=== PATIENT | male | born 1960 | race Caucasian/White ===

== ENCOUNTER → 2020-05-15 13:54 | Outpatient (CLI) | payer MEDICARE, SELFPAY ==
--- NOTE | ~2020-05-15 | CT_ITS ---
EXAMINATION:CT lung screening DATE: 05/15/2020 14:08 INDICATION: Personal history of tobacco dependence. Smoker who quit 3 years ago with 45 pack year his tory. TECHNIQUE: Computed tomography (CT) of the chest was performed without intravenous contrast. Automate d exposure control and iterative reconstruction technique were employed. The dose-length product (DLP ) was 98.26 mGy-cm. COMPARISON: None. FINDINGS: There is mild emphysema. There is mild atelectasis bilaterally. There is mild scarring at t he lung apices. No pleural effusion. The heart size is normal. No pericardial effusion. There are no pathologically enlarged lymph nodes. There is mild thoracic spondylosis and severe cervical spondylos is. IMPRESSION: 1. Lung-RADS category 2: Benign appearance or behavior. Continue annual screening with noncontrast lo w-dose chest CT in 12 months. Reviewed, dictated and finalized at location A. IMPRESSION: 1. Lung-RADS category 2: Benign appearance or behavior. Continue annual screeni ng with noncontrast low-dose chest CT in 12 months.
== END ==
PROVIDERS: PCP Student in an Organized Health Care Education/Training Program; Visit Provider Student in an Organized Health Care Education/Training Program
DX: Z12.2 Encounter for screening for malignant neoplasm of respiratory organs (principal); Z87.891 Personal history of nicotine dependence
CPT/HCPCS: G0297

== ENCOUNTER → 2021-07-23 12:56 | Outpatient (CLI) | payer MEDICARE, SELFPAY ==
--- NOTE | ~2021-07-23 | CT_ITS ---
EXAMINATION:CT lung screening DATE: 07/23/2021 13:29 INDICATION: Nicotine dependence, cigarettes, in remission. Smoker who quit in 2017 with 45 pack year history. TECHNIQUE: Computed tomography (CT) of the chest was performed without intravenous contrast. Automate d exposure control and iterative reconstruction technique were employed. The dose-length product (DLP ) was 158.95 mGy-cm. COMPARISON: Chest CT 05/15/2020 FINDINGS: There is mild scarring at the lung apices. There is mild atelectasis in the upper lungs. No pleural effusion. The heart size is normal. No pericardial effusion. There is mild bilateral gynecom astia. There is mild thoracic spondylosis. There is mild chronic height loss of multiple vertebral fredi dies. IMPRESSION: 1. Lung-RADS category 2: Benign appearance or behavior. Continue annual screening with noncontrast lo w-dose chest CT in 12 months. Reviewed, dictated and finalized at location A. IMPRESSION: 1. Lung-RADS category 2: Benign appearance or behavior. Continue annual screeni ng with noncontrast low-dose chest CT in 12 months.
== END ==
PROVIDERS: PCP Student in an Organized Health Care Education/Training Program; Visit Provider Student in an Organized Health Care Education/Training Program
DX: F17.211 Nicotine dependence, cigarettes, in remission (principal)
CPT/HCPCS: 71271

== ENCOUNTER → 2022-08-24 14:22 | Outpatient (CLI) | payer MEDICARE, SELFPAY ==
--- NOTE | ~2022-08-24 | CT_ITS ---
EXAMINATION: CT lung screening DATE: 08/24/2022 14:38 INDICATION: Personal history of tobacco dependence TECHNIQUE: Computed tomography (CT) of the chest was performed without intravenous contrast. The dose -length product was 104.99 mGy-cm. Automated exposure control and iterative reconstruction technique were employed. COMPARISON: CT dated 07/23/2021 FINDINGS: Heart size is normal. No significant pleural or pericardial effusion. No thoracic lymphaden opathy. The upper abdomen is unremarkable. No significant vascular abnormality. There is scarring at the lung apices. No endobronchial lesions. No focal airspace disease. No pneumothorax. No suspicious pulmonary nodules or masses. IMPRESSION: 1. Lung-RADS category 1: Negative. Continue annual screening with noncontrast low-dose chest CT in 12 months. Reviewed, dictated and finalized at location B. ORK ANNOUNCER IMPRESSION: 1. Lung-RADS category 1: Negative. Continue annual screening with noncontrast l ow-dose chest CT in 12 months.
== END ==
PROVIDERS: PCP Student in an Organized Health Care Education/Training Program; Visit Provider Student in an Organized Health Care Education/Training Program
DX: Z12.2 Encounter for screening for malignant neoplasm of respiratory organs (principal); F17.210 Nicotine dependence, cigarettes, uncomplicated
CPT/HCPCS: 71271

== ENCOUNTER → 2022-09-17 16:53 | Outpatient (CLI) | payer MEDICARE, SELFPAY ==
--- NOTE | ~2022-09-17 | MR_ITS ---
EXAMINATION: MR cervical spine wo con DATE: 09/17/2022 17:29 INDICATION: Cervical radiculopathy TECHNIQUE: Magnetic resonance imaging (MRI) of the cervical spine was performed without intravenous c ontrast. Sequences included sagittal T2-weighted FSE, sagittal T2-weighted FS FSE, sagittal T1-weight ed FSE, axial MERGE and axial T2-weighted FSE. COMPARISON: None FINDINGS: Mild reversal of the normal cervical lordosis. 2 mm anterolisthesis C3 on C4. Solid anterior fusion f rom C5-C7. Unfused vertebral body heights are normal. Small low signal intensity sclerotic bone islan d at the right side of C7. Bone marrow signal intensity is otherwise normal. Severe posterior predomi nant disc height loss at C7-T1. Moderate disc height loss at C3-C4 and C4-C5. Mild disc height loss a t C2-C3. Cord signal intensity is normal. Cervical soft tissues are unremarkable. The following disc levels are specifically discussed: C2-C3: Small central disc protrusion. There is no uncovertebral joint osteoarthritis. There is right and severe left facet joint osteoarthritis. There is mild left neural foraminal stenosis. There is no central canal stenosis. C3-C4: Disc is bulging. There is moderate right and severe left uncovertebral joint osteoarthritis. T here is severe bilateral facet joint osteoarthritis. There is left and mild to moderate right neural foraminal stenosis. There is mild central canal stenosis with mild flattening of the ventral surface of the cord. C4-C5: Disc is bulging with annular fissure. There is severe bilateral uncovertebral joint osteoarthr itis. There is right and moderate left facet joint osteoarthritis. There is moderate bilateral neural foraminal stenosis. There is mild central canal stenosis with mild indentation of the right and cent ral ventral surface of the cord. C5-C6: Disc space is fused. There is mild bilateral facet joint osteoarthritis. There is mild bilater al neural foraminal stenosis. There is minimal central canal stenosis with flattening of the right ve ntral surface of the cord. C6-C7: Disc space is fused. There is old right and moderate left facet joint osteoarthritis. There is right and mild to moderate left neural foraminal stenosis. There is no central canal stenosis. C7-T1: Disc is bulging with annular fissure. There is bilateral uncovertebral joint osteoarthritis. T here is moderate bilateral facet joint osteoarthritis. There is moderate left and moderate right neur al foraminal stenosis. There is mild central canal stenosis with mild flattening the right ventral sanchez rface of the cord. IMPRESSION: 1. Severe cervical spondylosis with anterior fusion at C5-C7. Reviewed, dictated and finalized at location A. CIPAL ENGINEER
== END ==
PROVIDERS: PCP Student in an Organized Health Care Education/Training Program; Visit Provider Student in an Organized Health Care Education/Training Program
DX: M54.12 Radiculopathy, cervical region (principal); R93.7 Abnormal findings on diagnostic imaging of other parts of musculoskeletal system; M43.02 Spondylolysis, cervical region; Z98.1 Arthrodesis status
CPT/HCPCS: 72141

== ENCOUNTER 2023-08-02 11:51 | Outpatient (CLI) | payer MEDICARE, SELFPAY ==
--- NOTE | 2023-08-02 12:08 | ECG_ITS ---
Measurements Intervals [place] Rate: 72 P: 91 CO: 129 QRS: 57 QRSD: 106 T: 54 QT: 363 QTc: 399 Interpretive Statements SINUS RHYTHM LEFT VENTRICULAR HYPERTROPHY BASELINE ARTIFACT- I, II, AVR, AVL, AVF, V1-V3 BORDERLINE ECG NO PREVIOUS ECG AVAILABLE FOR COMPARISON Electronically Signed On 08-03-2023 6:35:52 CDT by Yared Renteria D.O.
== END 2023-08-02 11:52 | disposition home or self-care (01) ==
LOC: ANHSURGERY 11:57
PROVIDERS: PCP Student in an Organized Health Care Education/Training Program; Visit Provider Surgery
DX: Z01.818 Encounter for other preprocedural examination (principal); I10 Essential (primary) hypertension; K40.90 Unilateral inguinal hernia, without obstruction or gangrene, not specified as recurrent
CPT/HCPCS: 36415; 86850; 86900; 86901; 93005

== ENCOUNTER 2023-08-04 00:32 | Day surgery (SDC) | payer MEDICARE, SELFPAY ==
[2023-08-01 14:58] VITALS: BMI 21.5
--- NOTE | 2023-08-01 15:13 | PC.NURSE ---
Report to the Outpatient Waiting Room, entrance under the green pavilion located off [facility], at time 1000_ on date _08/04/23_. Planned Procedure Time: _1200 _. Time changes happen often and if your time is changed the preop area will call you the afternoon before. - You and your visitor will be asked to self-screen and do not enter if you have any COVID symptoms. - A mask is optional within the hospital at this time. Patients may have clear liquids (water, carbonated beverages, clear teas, apple juice) until 3 hours prior to surgery with a maximum of 20 ounces. - No food from midnight until time of surgery - Infants may have breast milk until 4 hours before surgery, infant formula 6 hours prior to surgery. - Children will be allowed to drink immediately following surgery. If applicable, please bring a bottle or sippy cup to assist with drinking. Juice, water, soda, and popsicles are readily available. For infants on formula, please bring formula the day of surgery. Pacifiers are allowed. Take the following medications with a SIP of water the morning of surgery: CARVEDILOL DO NOT STOP ANY OF YOUR OTHER PRESCRIPTION MEDICATIONS PRIOR TO SURGERY ?EXCEPT THE FOLLOWING Medications to discontinue per physician NONE Date to take last dose Please no make-up, nail slovak, hairspray, perfume, deodorant, or body powder the day of surgery. No jewelry (including any body piercings) or valuables the day of surgery, leave them at home. Please take a shower or bath the night before, or the morning of, surgery with HIBICLENS antibacterial soap. Wear comfortable, loose fitting clothing. Children are encouraged to wear pajamas. - Jewelry must be removed prior to entering the operating room. Rings and piercings that are not removed may be cut off. - The hospital will not accept responsibility for valuables. - Please leave all valuables, including medications, at home the day of surgery. If you are going home after surgery, a licensed ups driver must drive you home. - NO public transportation without another adult if you receive anesthesia. - We recommend that an adult stay with you for 24 hours following discharge. - We also recommend that you do not drive, make important decision, drink alcoholic beverages, or take any drugs that were not prescribed by your health care provider for at least 24 hours after your discharge time. For Pediatric surgeries, we recommend two adults accompany the child home. Follow any additional instructions given to you from your surgeon. If you or anyone in your household have experienced Covid symptoms in the past week, please notify your surgeon or the nurse liaison at the phone number below for possible testing. Telephone instructions given to __PATIENT__and asked if any additional questions and then verbalized understanding. Patient advised to call surgeon office or pre surgery nurse liaison [phone] if any additional questions.
[2023-08-04] VITALS (9 sets, daily range): BP systolic 134–165; BP diastolic 75–88; PULSE 58–86; RESP 12–20; TEMP 36.4–36.5; O2SAT 93–100
[2023-08-04] MEDS: ACETAMINOPHEN 500 MG TABLET 1000 MG PO (10:36)
[2023-08-04] MEDS: LACTATED RINGERS 1,000 ML 30 ML IV CONT ×2 (10:45→13:35)
[2023-08-04] MEDS: KETOROLAC 15 MG/ML VIAL (*BKC) IV PUSH (10:50)
--- NOTE | 2023-08-04 11:07 | WPDANESEPPF ---
Anes - Initial Pre Proc Eval Procedure: Operation Date: 08/04/23 12:00 Proposed Procedures p Robotic Right Inguinal Hernia Repair with Mesh - Linda Balderas MD Date/Time: 08/04/23 11:07 Surgeon: Linda Balderas MD Pre Op Diagnosis: Right Ing Hernia Patient Data Age: 63 Gender: M Height: 1.83 m Weight: 70.5 kg Last Vital Signs Temp 36.4 C L 08/04/23 10:02 Pulse 68 08/04/23 10:02 Resp 20 08/04/23 10:02 BP 162/84 H 08/04/23 10:02 Pulse Ox 98 08/04/23 10:02 O2 Del Method Room Air 08/04/23 10:02 Allergies Allergy/AdvReac Type Severity Reaction Status Date / Time No Known Allergies Allergy Verified 08/01/23 14:55 Home Medications Medication Instructions Recorded Confirmed Type amlodipine 10 mg tablet 10 mg PO HS 08/01/23 08/04/23 History carvedilol 25 mg tablet 25 mg PO BID 08/01/23 08/04/23 History tamsulosin 0.4 mg capsule 0.4 mg PO BID 08/01/23 08/04/23 History Patient hx anesthesia problems: none Family hx anesthesia problems: none Results Review: All pre-operative results and documents have been reviewed as part of the pre-operative evaluation. [facility] Past Medical History Medical History Hypertension Surgical History Surgical History History of neck surgery Family History Family History Other Family history of cardiovascular disease Family history of malignant neoplasm Social History Social History Smoking packs per day: 1 Smoking cigarettes per day: 20.0 Years smoked: 30 Smoking pack-years: 30.00 Smoking status: Former smoker Tobacco type: cigarettes Additional smoking assessment comments: QUIT SMOKING IN THE LAST 10 YRS Alcohol intake: former Substance use: current Substance use type: marijuana Other substance usage details: 1 PER WEEK Living arrangements: with family Anes - Eval Final PreProcedure Day of Procedure 08/04/23 11:07 Patient weight: normal Heart: regular rate and rhythm Lungs: decreased breath sounds Airway: Mallampati scale class II Neurological: alert and oriented Last oral intake: >/= 8 hours ASA classification: III Emergent: no Anesthetic plan: proceed Anesthesia type and monitoring: general ETT and standard monitoring Results Review: All pre-operative results and documents have been reviewed as part of the pre-operative evaluation. Informed Consent: The patient's anesthetic plan and its attendant risks and benefits were discussed with the patient/family/POA. Questions were solicited and answers provided to the satisfaction of the patient/family/POA.
--- NOTE | 2023-08-04 12:04 | WPDHPUPDATE1 ---
History and Physical Update Update Date/Time: 08/04/23 12:04 History and Physical has been reviewed, including an updated exam of the patient. There are NO changes in the patient's condition. Risks, benefits, and alternatives have been discussed and questions answered. Patient agrees to proceed with procedure.
[2023-08-04] MEDS: ceFAZolin 2 GM/D5W 50 ML 2 GM/50 ML BAG IVPB (12:11)
[2023-08-04] MEDS: BUPIVACAINE/EPINEPHRINE 0.5% 50 ML VIAL 30 ML INFILTRATE (13:23)
--- NOTE | 2023-08-04 13:27 | W.PM.PROC2 ---
Procedure Note - Detailed Date of Procedure 08/04/23 Pre-op Diagnosis Right Inguinal Hernia Post-op Diagnosis Same Procedure Performed robotic assisted right inguinal hernia repair with mesh Surgeon Linda Balderas MD Anesthesia General Indications 63-year-old male with progressively worsening right inguinal hernia over the last few months Findings pantaloon right inguinal hernia Description of Procedure Patient was brought into the operating room and placed in the supine position. After adequate induction of general anesthesia, the patient was prepped and draped in normal sterile fashion. A time-out was then done to verify the patient's identity, as well as the procedure being performed. Began by making a 8 mm incision in the supraumbilical region, a Veress needle was then placed into the peritoneal cavity. CO2 gas was then insufflated and after adequate pneumoperitoneum was achieved, the Veress needle was removed. I then placed an 8 mm trocar through this incision. I then placed the endoscope through this trocar site and under direct visualization placed 2 further 8 mm ports in the right and left mid abdomen. The [employer] robot was then docked to the 3 trocar sites. I then scrubbed out and went to the robotic console. Upon examining the pelvis, it was noted that the patient had a large right inguinal hernia. The left side was examined and no hernia defect was noted. I began by making a preperitoneal flap approximately 6 cm superior to the defect. This flap was carried medially past the umbilical ligaments in laterally to the transversalis. I then began dissection of my medial compartment taking this down to the pubic tubercle. A large direct inguinal hernia was identified at this point. I took down this hernia and dissected the sac back into the preperitoneal cavity. I then began the lateral dissection taking this down to the transversalis fascia. Once these compartments were achieved, I began dissection around the cord structures. A moderate indirect hernia was noted at this point. Using careful dissection, was able to reduce indirect hernia sac off the cord structures. Once this was adequately done, I went ahead and placed a large piece of 3D Max mesh into the abdominal cavity. The mesh was carefully positioned, centering the center of the mesh over the larger direct defect. Once this was done, was very satisfied with our repair. Using 3-0 Vicryl sutures, I tacked the mesh medially to Sebastian's ligament. Two lateral sutures were placed from the mesh to the transversalis fascia. I then closed the peritoneal flap with a running 2.0 V Lock suture. The abdomen was then desufflated, and all ports were removed. All incisions were then closed with the 4.0 monocryl suture. Dermabond was placed on each wound. The patient tolerated the procedure well, was extubated in the operating room postoperatively, and will now be transferred to the recovery room in stable condition. Implants large 3DMax mesh Estimated Blood Loss 10 Drains No Packing No Pathology None sent Complications No immediate complications Condition Stable Disposition PACU [facility] Billing Surgery - Charge Forward: Surgery Billing
[2023-08-04] MEDS: fentaNYL CITRATE INJ (*CRX) 100 MCG/2 ML VIAL 25 MCG IV PUSH ×4 (14:02→14:25)
[2023-08-04] MEDS: oxyCODONE HCL (*CRX) 5 MG TAB IR PO (15:04)
== END 2023-08-04 15:48 | disposition home or self-care (01) ==
PROVIDERS: PCP Student in an Organized Health Care Education/Training Program; Visit Provider Surgery
PROC: 8E0Y4CZ Robotic Assisted Procedure of Lower Extremity, Percutaneous Endoscopic Approach (ICD-10-PCS; CPT 49650; principal; 2023-08-04 12:00)
DX: K40.90 Unilateral inguinal hernia, without obstruction or gangrene, not specified as recurrent (principal); I10 Essential (primary) hypertension; Z87.891 Personal history of nicotine dependence; Z98.890 Other specified postprocedural states
CPT/HCPCS: 49650; S2900; 36415; 86850; 86900; 86901; 93005; A9270; C1781; J0690; J1100; J1170; J1885; J2250; J2405; J2704; J3010; J7030; J7120

== ENCOUNTER 2023-09-21 08:48 | Outpatient (CLI) | payer MEDICARE, SELFPAY ==
--- NOTE | ~2023-09-21 | CT_ITS ---
CT of the Abdomen and Pelvis: Indication: Weight loss Technique: 2.5 mm axial scans were obtained through the abdomen and pelvis following intravenous adm inistration of 100 cc of Omnipaque 350. Dose reduction technique was used on this scan by utilizing a utomated exposure control and iterative reconstruction technique. The dose-length product (DLP) was 3 08.50 mGy-cm. Findings: Scans through the lung bases are unremarkable. The liver, spleen, pancreas, gallbladder, adrenals and kidneys are within normal limits. No evidence of aortic aneurysm. No lymphadenopathy. Probable mild wall thickening of sigmoid colon with diverticulosis present. No abscess or free air. N o bowel obstruction. Images through the pelvis were performed. Mild diffuse urinary bladder wall thickening with several s mall urinary bladder diverticula present. Prostate gland is unremarkable. No ascites. Impression: Suspected cystitis with multiple small urinary bladder diverticula. Correlate with urinalysis. Wall thickening of the sigmoid colon diverticulosis. This could reflect muscular hypertrophy related to the diverticulosis, versus possibly very mild acute diverticulitis. Correlate clinically and with patient's symptomatology. Reviewed, dictated and finalized at location . R RELATIONS MANAGER Impression: Suspected cystitis with multiple small urinary bladder diverticula. Correlate w ith urinalysis. Wall thickening of the sigmoid colon diverticulosis. This could reflect muscula r hypertrophy related to the diverticulosis, versus possibly very mild acute di verticulitis. Correlate clinically and with patient's symptomatology.
--- NOTE | ~2023-09-21 | CT_ITS ---
CT Scan of the Chest without Contrast: Clinical Indication: Weight loss Technique: Contiguous sections were acquired throughout the chest without intravenous contrast. Dose reduction technique was used on this scan by utilizing automated exposure control and iterative recon struction technique. The dose-length product (DLP) was 180.55 mGy-cm. COMPARISON: 08/24/2022 Findings: There is no evidence of any significant mediastinal, hilar or axillary lymphadenopathy. The mediastin al soft tissues appear normal. There is no evidence of pleural or pericardial effusion. The lungs are clear. No pulmonary nodules or infiltrates are noted. Images through the upper abdomen reveal no abnormalities. Impression: No significant abnormalities seen. Reviewed, dictated and finalized at location . RAM PROJECT ANALYST Impression: No significant abnormalities seen.
[2023-09-21 09:10] LABS: Estimated Glomerular Filt Rate > 60
== END 2023-09-21 08:49 | disposition home or self-care (01) ==
PROVIDERS: PCP Student in an Organized Health Care Education/Training Program; Visit Provider Student in an Organized Health Care Education/Training Program
DX: R63.4 Abnormal weight loss (principal); K57.30 Diverticulosis of large intestine without perforation or abscess without bleeding
CPT/HCPCS: 71250; 74177; Q9967

== ENCOUNTER 2024-06-07 10:37 | Outpatient (CLI) | payer MEDICARE, SELFPAY ==
[2024-06-07 11:08] LABS: Hematocrit 40.6 % (42.0-52.0); Hemoglobin 12.9 g/dL (14.0-18.0); Mean Corpuscular HGB Conc 31.8 g/dl (32-36); Mean Corpuscular Hemoglobin 31.1 pg (26-34); Mean Corpuscular Volume 97.8 fl (80-100); Mean Platelet Volume 9.3 fl (7.4-10.4); Platelet Count Result 255 k/mm3 (150-375); Red Blood Count 4.15 M/mm3 (4.6-6.20); Red Cell Distribution Width 13.8 % (11.5-14.5); White Blood Count 7.4 K/mm3 (4.5-10.0)
[2024-06-07 11:31] LABS: Alanine Aminotransferase 20 U/L (6-50); Albumin Level 4.1 g/dL (3.5-5.1); Alkaline Phosphatase 55 U/L (38-126); Anion Gap 4 mmol/L (4-12); Aspartate Amino Transferase 29 U/L (17-59); Bilirubin,Total 0.4 mg/dL (0.2-1.3); Blood Urea Nitrogen 14 mg/dL (9-20); Calcium 8.4 mg/dL (8.4-10.2); Carbon Dioxide 39 mmol/L (22-30); Chloride 95 mmol/L (98-107); Estimated Glomerular Filt Rate > 60; Glucose 92 mg/dL (65-110); Potassium 4.6 mmol/L (3.4-5.0); Sodium 138 mmol/L (137-145)
[2024-06-07 11:40] LABS: Erythrocyte Sedimentation Rate 13 mm/hr (0-20)
[2024-06-11 16:33] LABS: Immunoglobulin A 206 mg/dL (70-320); TTG IGA AB <1.0 U/mL
== END 2024-06-07 10:38 | disposition home or self-care (01) ==
LOC: ANHLAB 10:40
PROVIDERS: PCP Student in an Organized Health Care Education/Training Program; Visit Provider Nurse Practitioner
DX: R63.0 Anorexia (principal); I10 Essential (primary) hypertension
CPT/HCPCS: 36415; 80053; 82784; 84443; 85027; 85652; 86140; 86364

== ENCOUNTER 2024-06-12 08:38 | Outpatient (CLI) | payer MEDICARE, SELFPAY ==
[2024-06-12 10:07] LABS: Iron 100 ug/dL (49-181)
[2024-06-12 10:18] LABS: Percent Iron Saturation 36 % (20-50)
[2024-06-12 11:06] LABS: Folic Acid 8.6 ng/mL (2.76->20)
== END 2024-06-12 08:39 | disposition home or self-care (01) ==
PROVIDERS: PCP Student in an Organized Health Care Education/Training Program; Visit Provider Nurse Practitioner
DX: D64.9 Anemia, unspecified (principal)
CPT/HCPCS: 36415; 82607; 82728; 82746; 83540; 83550

== ENCOUNTER 2024-06-27 11:14 | Day surgery (SDC) | payer MEDICARE, SELFPAY ==
[2024-06-12 11:07] VITALS: BMI 22.6
[2024-06-13 11:59] VITALS: BMI 22.4
[2024-06-27 11:40] VITALS: BP 183/96; PULSE 63; RESP 18; TEMP 37.1; O2SAT 98
[2024-06-27] MEDS: LACTATED RINGERS 1,000 ML 150 ML IV CONT (11:56)
--- NOTE | 2024-06-27 12:04 | PM.HPGS ---
History of Present Illness History of Present Illness Consent: Risks, benefits, and alternatives have been discussed and questions answered. Patient agrees to proceed with procedure. Chief complaint: Abnormal Weight Loss.Anorexia.Early Satiety. Narrative: Caio Delgado is a 64 year old male presents for both colonoscopy and EGD. Patient has vague abdominal bloating and discomfort. Early satiety and weight loss. Symptoms have been present starting 1 year ago. Initially he had neck surgery. Subsequently treated for pneumonia. Subsequently had surgical Hernia repair. Because of abdominal discomfort in bloating symptoms a CT scan was performed with thickening in the sigmoid colon identified for which she was empirically treated with antibiotics for possible diverticulitis. Additionally patient continues to see Pulmonary service and recently obtained a trial of steroids for his symptoms. Now referred for both colonoscopy an EGD because of early satiety, bloating, and weight loss. Was seen in GI office recently. Review of Systems Review of Systems: All systems reviewed & are unremarkable except as noted in HPI and below PMFSH Past Medical History Medical History Hypertension Surgical History Surgical History History of neck surgery Hx of right inguinal hernia repair robotic assisted right inguinal hernia repair with mesh on 08/04/23 PDC Family History Family History Other Family history of cardiovascular disease Family history of malignant neoplasm Social History Social History Smoking packs per day: 1.5 Smoking cigarettes per day: 30.0 Years smoked: 15 Smoking pack-years: 22.50 Smoking status: Former smoker Tobacco type: cigarettes Additional smoking assessment comments: QUIT SMOKING IN THE LAST 10 YRS Alcohol intake: current Drinks per week: 2 Substance use: former Substance use type: marijuana Other substance usage details: 1 PER WEEK Living arrangements: with family Spiritual care concerns: No Meds Home Medications and Allergies Home Medications Medication Instructions Recorded Confirmed Type amlodipine 10 mg tablet 10 mg PO HS 08/01/23 06/27/24 History tamsulosin 0.4 mg capsule 0.4 mg PO BID 08/01/23 06/27/24 History albuterol (refill) 90 90 mcg inhalation PRN PRN 05/24/24 06/27/24 History mcg/actuation aerosol inhaler Shortness Of Breath sodium,potassium,mag sulfates 17.5 See Rx Instructions PO .COMPLEX 06/12/24 06/27/24 Rx gram-3.13 gram-1.6 gram oral soln #354 mL (Suprep Bowel Prep Kit) Excedrin Migraine 1 tab-cap PO PRN PRN Headache 06/13/24 06/27/24 History carisoprodol 350 mg tablet 350 mg PO TID PRN Muscle Pain 06/13/24 06/27/24 History carvedilol 25 mg tablet 25 mg PO DAILY 06/13/24 06/27/24 History mirtazapine 15 mg tablet 30 mg PO HS 06/13/24 06/27/24 History telmisartan 80 mg tablet 80 mg PO DAILY 06/13/24 06/27/24 History Allergies Allergy/AdvReac Type Severity Reaction Status Date / Time No Known Allergies Allergy Verified 06/27/24 11:44 Vital Signs Vital Signs - 24 hr 06/27/24 11:40 Temperature 98.8 F Pulse Rate 63 Respiratory Rate 18 Blood Pressure 183/96 H Pulse Oximetry 98 Oxygen Delivery Room Air Exam Narrative: Physical exam reveals patient signs stable. HEENT exam unremarkable. Patient is anicteric. Lungs are clear to auscultation and percussion is without murmur or extra sounds. Abdomen is soft. Bowel sounds are present. No localized tenderness appreciated. Digital external rectal exam normal. Extremities are without clubbing cyanosis or edema. Assessment and Plan Assessment and plan (1) Colon wall thickening: Code(s): K63.9 - Disease of intestine, unspecified Status: Acute Assessmen
--- NOTE | 2024-06-27 12:13 | WPDANESEPPF ---
Anes - Initial Pre Proc Eval Procedure: Operation Date: 06/27/24 13:00 Proposed Procedures p Esophagogastroduodenoscopy - Dewey Artis MD s Diagnostic Colonoscopy - Dewey Artis MD Date/Time: 06/27/24 12:13 Surgeon: Dewey Artis MD Pre Op Diagnosis: Abnormal Weight Loss.Anorexia.Early Satiety. Patient Data Age: 64 Gender: M Height: 1.83 m Weight: 75 kg Last Vital Signs Temp 37.1 C 06/27/24 11:40 Pulse 63 06/27/24 11:40 Resp 18 06/27/24 11:40 BP 183/96 H 06/27/24 11:40 Pulse Ox 98 06/27/24 11:40 O2 Del Method Room Air 06/27/24 11:40 Allergies Allergy/AdvReac Type Severity Reaction Status Date / Time No Known Allergies Allergy Verified 06/27/24 11:44 Home Medications Medication Instructions Recorded Confirmed Type amlodipine 10 mg tablet 10 mg PO HS 08/01/23 06/27/24 History tamsulosin 0.4 mg capsule 0.4 mg PO BID 08/01/23 06/27/24 History albuterol (refill) 90 90 mcg inhalation PRN PRN 05/24/24 06/27/24 History mcg/actuation aerosol inhaler Shortness Of Breath sodium,potassium,mag sulfates 17.5 See Rx Instructions PO .COMPLEX 06/12/24 06/27/24 Rx gram-3.13 gram-1.6 gram oral soln #354 mL (Suprep Bowel Prep Kit) Excedrin Migraine 1 tab-cap PO PRN PRN Headache 06/13/24 06/27/24 History carisoprodol 350 mg tablet 350 mg PO TID PRN Muscle Pain 06/13/24 06/27/24 History carvedilol 25 mg tablet 25 mg PO DAILY 06/13/24 06/27/24 History mirtazapine 15 mg tablet 30 mg PO HS 06/13/24 06/27/24 History telmisartan 80 mg tablet 80 mg PO DAILY 06/13/24 06/27/24 History Patient hx anesthesia problems: none Family hx anesthesia problems: none Results Review: All pre-operative results and documents have been reviewed as part of the pre-operative evaluation. REPLACED BY [facility] Past Medical History Medical History Hypertension Surgical History Surgical History History of neck surgery Hx of right inguinal hernia repair robotic assisted right inguinal hernia repair with mesh on 08/04/23 PDC Family History Family History Other Family history of cardiovascular disease Family history of malignant neoplasm Social History Social History Smoking packs per day: 1.5 Smoking cigarettes per day: 30.0 Years smoked: 15 Smoking pack-years: 22.50 Smoking status: Former smoker Tobacco type: cigarettes Additional smoking assessment comments: QUIT SMOKING IN THE LAST 10 YRS Alcohol intake: current Drinks per week: 2 Substance use: former Substance use type: marijuana Other substance usage details: 1 PER WEEK Living arrangements: with family Spiritual care concerns: No Anes - Eval Final PreProcedure Day of Procedure 06/27/24 12:13 Patient weight: normal Heart: regular rate and rhythm Lungs: decreased breath sounds Airway: Mallampati scale class II Neurological: alert and oriented Last oral intake: >/= 8 hours ASA classification: III Emergent: no Anesthetic plan: proceed Anesthesia type and monitoring: general GIVS and standard monitoring Results Review: All pre-operative results and documents have been reviewed as part of the pre-operative evaluation. Informed Consent: The patient's anesthetic plan and its attendant risks and benefits were discussed with the patient/family/POA. Questions were solicited and answers provided to the satisfaction of the patient/family/POA.
[2024-06-27 12:48] VITALS: BP 157/86; PULSE 70; RESP 16; O2SAT 97
--- NOTE | 2024-06-27 12:56 | WPDANESPN ---
Anes - Prog Note Post-Op Date/Time: 06/27/24 12:56 Cardiovascular status: normal Respiratory status: normal Airway patency: baseline Mental status: baseline Post-Op hydration status: normal Vital Signs: Last Vital Signs Temp 37.1 C 06/27/24 11:40 Pulse 70 06/27/24 12:48 Resp 16 06/27/24 12:48 BP 157/86 H 06/27/24 12:48 Pulse Ox 97 06/27/24 12:48 O2 Del Method Room Air 06/27/24 12:48 Pain Score (VAS): 0 I/O: Intake & Output 06/26/24 06/27/24 06/27/24 23:59 07:59 15:59 Intake Total 700 Balance 700 Patient Feedback: Patient satisfied with anesthetic care.
[2024-06-27 12:58] VITALS: BP 173/99; PULSE 58; RESP 16; O2SAT 99
[2024-06-27 13:08] VITALS: BP 184/106; PULSE 58; RESP 15; O2SAT 99
== END 2024-06-27 13:28 | disposition home or self-care (01) ==
PROVIDERS: PCP Student in an Organized Health Care Education/Training Program; Visit Provider Internal Medicine Gastroenterology
PROC: 0DJ08ZZ Inspection of Upper Intestinal Tract, Via Natural or Artificial Opening Endoscopic (ICD-10-PCS; CPT 43235; principal; 2024-06-27 13:00)
PROC: 0DJD8ZZ Inspection of Lower Intestinal Tract, Via Natural or Artificial Opening Endoscopic (ICD-10-PCS; CPT 45378; 2024-06-27 13:00)
DX: R14.0 Abdominal distension (gaseous) (principal); R63.4 Abnormal weight loss; Z12.11 Encounter for screening for malignant neoplasm of colon; K57.30 Diverticulosis of large intestine without perforation or abscess without bleeding; K64.8 Other hemorrhoids
CPT/HCPCS: 45378; 43239